=== PATIENT | male | born 1940 | race Caucasian/White ===

== ENCOUNTER 2020-02-18 21:34 | Inpatient (IN) | payer MEDICARE, OTHER, SELFPAY ==
--- NOTE | ~2020-02-18 | CT_ITS ---
EXAMINATION: CT brain wo con EXAM DATE: 02/18/2020 22:31 INDICATION: Transient alteration of awareness. Altered mental status. TECHNIQUE: Spiral CT of the head was performed without contrast. Axial, coronal and sagittal images were reviewed. The dose-length product (DLP) for this examination was 832.33 mGy-cm. The exposure w as tailored according to patient size, and iterative reconstruction (ASIR) was used as additional dos e reduction technique. Comparison is made to prior examination from 06/06/2019. FINDINGS: There is no acute intraparenchymal hemorrhage. No evidence of intraparenchymal brain mass lesion. No evidence of acute infarction. Please note that initial head CT has limited sensitivity f or small or acute infarctions. There is mild periventricular and subcortical hypodensity, nonspecific but probably related to small vessel ischemic disease. There is moderate prominence of the sulci a nd ventricles related to cerebral atrophy. There is intracranial carotid arteriosclerosis. There a re no extra-axial collections. There is no mass effect or midline shift. The orbits are unremarkabl e. Soft tissue is unremarkable. The visualized sinuses and mastoid air cells are well aerated. IMPRESSION: 1. No acute intracranial findings. 2. Chronic age related findings. Reviewed, dictated and finalized at location A.
--- NOTE | ~2020-02-18 | XR_ITS ---
MODIFIED ESOPHAGRAM HISTORY: Dysphagia. TECHNIQUE: Modified barium esophagram was performed on 02/21/2020. I administered fluoroscopy and perfo rmed the exam with speech pathologist. Patient was seated for lateral fluoroscopic imaging for inges tion of thin liquids, pudding, solids and quantified amounts, followed by thin liquids in uncontrolle d amounts. This was recorded on tape. A single fluoroscopic spot image was also recorded. The DAP for this procedure was 0.88 Gycm2. The amount of fluoroscopy time used during this procedure was 1.3 min utes. FINDINGS: Oral stage: Premature spillage into the pharynx.. Pharyngeal stage: There is laryngeal penetration with artifactual attempted clearance suggesting like lihood of aspiration. There is residue in the vallecula and piriform sinuses. Cervical/esophageal stage: Adequate function. IMPRESSION: Oral pharyngeal dysphagia with laryngeal penetration and infection will attempt at cleara nce suggesting likelihood of aspiration. Reviewed, dictated and finalized at location A. IMPRESSION: Oral pharyngeal dysphagia with laryngeal penetration and infection will attempt at clearance suggesting likelihood of aspiration.
--- NOTE | ~2020-02-18 | XR_ITS ---
EXAMINATION: XR chest 1V portable EXAM DATE: 02/18/2020 22:40 INDICATION: Acute alteration of awareness. TECHNIQUE: Portable AP frontal chest x-ray was obtained. Comparison is made to prior examination from 06/08/2019. FINDINGS: There is small to moderate amount of ill-defined right midlung zone airspace disease which could be acute infectious process. Left lung is clear. No pneumothorax or pleural effusion. Cardiomed iastinal silhouette is normal. There are bony degenerative changes. Bones appear osteopenic. IMPRESSION: Small to moderate sized right midlung zone opacity, could be acute infectious process. Pl ease clinically correlate. Reviewed, dictated and finalized at location A. IMPRESSION: Small to moderate sized right midlung zone opacity, could be acute infectious process. Please clinically correlate.
[2020-02-18 21:42] VITALS: BP 115/45; PULSE 76; RESP 20; TEMP 37.7; O2SAT 96
--- NOTE | 2020-02-18 21:45 | ECG_ITS ---
Measurements Intervals [place] Rate: 74 P: 30 AR: 185 QRS: -62 QRSD: 115 T: 48 QT: 390 QTc: 434 Interpretive Statements SINUS RHYTHM LEFT ANTERIOR FASCICULAR BLOCK ABNORMAL ECG Electronically Signed On 02-19-2020 6:55:23 CDT by Lexa Olivera D.O.
--- NOTE | 2020-02-18 21:47 | ED.GENADULT ---
HPI - General Adult General Chief complaint: Weakness Stated complaint: lethargy Time Seen by Provider: 02/18/20 21:39 Source: patient History of Present Illness HPI narrative: Patient is a 79 y/o male sent from [place] for decreased appetite for last 2-3 days. He reportedly has not been eating much and has decreased mental status. There is no known alleviating or aggravating factor. He has Dementia at baseline and normally does not talk much. He is unable to provide additional history. He has not been observed to have vomiting or cough. Related Data Home Medications Medication Instructions Recorded Confirmed Complete Multivitamin 1 tab-cap PO DAILY 06/07/19 02/19/20 Ferrex 150 Forte Plus 1 cap PO DAILY 06/07/19 02/19/20 Neupro 1 patch TOPICAL DAILY 06/07/19 02/19/20 ascorbic acid (vitamin C) [Vitamin 500 mg PO DAILY 06/07/19 02/19/20 C] carbidopa-levodopa 2 tablet PO QID 06/07/19 02/19/20 carvedilol 3.125 mg PO BID 06/07/19 02/19/20 docusate sodium [DOK] 100 mg PO BID 06/07/19 02/19/20 donepezil 10 mg PO DAILY 06/07/19 02/19/20 finasteride 5 mg PO DAILY 06/07/19 02/19/20 memantine 10 mg PO BID 06/07/19 02/19/20 olopatadine 1 drp OPHTHALMIC (EYE) BID 06/07/19 02/19/20 pantoprazole 40 mg PO DAILY 06/07/19 02/19/20 polyethylene glycol 3350 17 g PO BID 06/07/19 02/19/20 potassium chloride 20 meq PO DAILY 06/07/19 02/19/20 Allergies Allergy/AdvReac Type Severity Reaction Status Date / Time Sulfa (Sulfonamide Allergy Unknown Unknown Verified 02/18/20 21:50 Antibiotics) Review of Systems Review of Systems: ROS unobtainable: Yes unobtainable due to mental status Constitutional: Constitutional: Reports as per HPI Gastrointestinal: Gastrointestinal: Reports as per HPI [facility] Past Medical History Medical History Acute respiratory failure requiring intubation May 2019 BPH (benign prostatic hyperplasia) Dementia GERD (gastroesophageal reflux disease) HTN (hypertension) Hyperlipidemia Iron deficiency anemia Parkinson's disease Sleep apnea Upper GI bleed Surgical History Surgical History History of esophagogastroduodenoscopy (EGD) November 2018 demonstrating reflux esophagitis, hiatal hernia and intraluminal gastric blood History of hernia repair History of right knee joint replacement History of total hip replacement History of vasectomy Hx of tonsillectomy Family History Family History Father Malignant neoplasm of prostate Mother Chronic renal failure Social History Social History Social History: code status: Full code per [facility] form on chart Smoking status: Never smoker Second hand tobacco smoke exposure: No Alcohol intake: never Substance use: never Additional living arrangements comments: The patient lives at [facility] and is dependent for all activities of daily living. He is and has 2 children. He is estranged from his daughter. 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 Gender identity (if verbalized by the patient): Male Spiritual care concerns: No Exam Const: General: no acute distress and ill appearing Orientation/consciousness: lethargic HENMT: Head: normocephalic Ears: external ears normal General nose exam: Normal external nose present Eyes: General: appearance normal, both eyes and all related structures Conjunctivae: conjunctivae normal Neck: Neck: normal visual inspection and full ROM Chest: Chest palpation & inspection: normal inspection of the chest and no tenderness Resp: Effort & Inspection: normal respiratory effort Auscultation: clear to auscultation bilaterally Cardio: Rate: regular rate Rhythm: regular rhythm GI: GI Palp: No abdominal tenderness and Yes Soft to palpation S
[2020-02-18 22:18] LABS: Basophils Percent Auto 0.4 % (0.2-1.2); Eosinophils Absolute Auto 0.2 K/mm3 (0-0.3); Eosinophils Percent Auto 2.1 % (0-4.4); Hematocrit 34.6 % (42.0-52.0); Hemoglobin 10.2 g/dL (14.0-18.0); Immature Granulocyte Absolute 0.07 K/mm3 (0.00-0.031); Immature Granulocyte Percent A 0.7 % (0-0.5); Lymphocytes Absolute Auto 1.06 K/mm3 (0.9-3.2); Lymphocytes Percent Auto 9.9 % (18.3-44.2); Mean Corpuscular HGB Conc 29.5 g/dl (32-36); Mean Corpuscular Hemoglobin 24.7 pg (26-34); Mean Corpuscular Volume 83.8 fl (80-100); Mean Platelet Volume 9.8 fl (7.4-10.4); Monocytes Absolute Auto 0.7 K/mm3 (0.1-0.6); Monocytes Percent Auto 6.1 % (2.6-8.5); Neutrophils Absolute Auto 8.7 K/mm3 (1.3-6.7); Neutrophils Percent Auto 80.8 % (45.5-73.1); Platelet Count Result 280 k/mm3 (150-375); Red Blood Count 4.13 M/mm3 (4.6-6.20); Red Cell Distribution Width 16.9 % (11.5-14.5); White Blood Count 10.7 K/mm3 (4.5-10.0)
[2020-02-18 22:22] LABS: Add Urine Microscopic? YES; Appearance Urine Turbid (Clear); Bacteria Urine Trace /hpf; Bilirubin Urine Negative (Negative); Color Urine Yellow (Yellow); Glucose Urine UA Negative (Negative); Ketones Urine Trace mg/dL (Negative); Leukocyte Esterase Ur 3+ LEU/UL (Negative); Mucus Urine Heavy /lpf; Nitrate Urine Negative (Negative); Protein Urine 2+ mg/dL (Negative); RBC Urine 21-50 /hpf (0-2); WBC Clumps Urine Present /HPF; WBC Urine >75 /hpf
[2020-02-18 22:24] LABS: Blood Urine Negative (Negative)
[2020-02-18 22:27] LABS: Platelet Estimate Adequate (Adequate)
[2020-02-18 22:29] LABS: Hypochromasia 1+ (NORMAL)
[2020-02-18 22:30] LABS: Alanine Aminotransferase 6 U/L (4-50); Albumin Level 2.9 g/dL (3.5-5.1); Alkaline Phosphatase 80 U/L (38-126); Anion Gap 8.4 mmol/L (7-16); Aspartate Amino Transferase 18 U/L (17-59); Bilirubin,Total 0.5 mg/dL (0.2-1.3); Blood Urea Nitrogen 18 mg/dL (9-20); Calcium 8.8 mg/dL (8.4-10.2); Carbon Dioxide 27 mmol/L (22-30); Chloride 114 mmol/L (98-107); Estimated CRCL calculation 83 ml/min; Estimated Glomerular Filt Rate > 60; Glucose 114 mg/dL (75-110); Ovalocytes 1+ (NORMAL); Potassium 3.4 mmol/L (3.4-5.0); Sodium 146 mmol/L (137-145)
[2020-02-18 22:52] VITALS: BP 124/63; PULSE 73; RESP 17; O2SAT 96
[2020-02-18 23:30] VITALS: BP 109/55; PULSE 71; RESP 18; O2SAT 97
[2020-02-19] VITALS (8 sets, daily range): BP systolic 92–135; BP diastolic 45–60; PULSE 50–72; RESP 16–22; TEMP 36.3–37.1; O2SAT 93–100; BMI 19.3
[2020-02-19] MEDS: cefTRIAXone 1 GM VIAL IM (00:04)
--- NOTE | 2020-02-19 03:14 | ADMGEN ---
This patient, Jose D Whitney, was admitted to [facility] Surg Room 331-01. Patient/family oriented to hospital policies and general routines including ID bracelet, bed and alarms, visiting hours, pain management, procedures, bathroom and other care routines, personal items, smoking policy, room service/diet, and visiting hours. Valuables list has been completed. Information on how to activate the Rapid Response Team has been discussed. Patient/Family are encouraged to report perceived risks to care and to ask questions if they do not understand what they are told or what they should do.
[2020-02-19] MEDS: SODIUM CHLORIDE 0.9% IV 1,000 ML 125 ML IV CONT ×2 (04:45→21:08)
--- NOTE | 2020-02-19 04:51 | PM.IMHP ---
H&P: HPI History of Present Illness Date/Time: 02/19/20 04:51 Chief complaint: change in mental status Narrative: Jose D Whitney is a 79 year old male with a past medical history of Parkinson's disease, dementia, hypertension, and urinary retention who presented to the ER From [facility] via EMS due to decreased level of alertness and not following commands For 3 days. The patient is usually able to follow verbal cues and follow people around the room with his eyes. He usually is able say a couple of words. The patient's sister told nursing staff that the patient's last meal was on the . He usually requires assistance for all meals and is on a double portion high-protein diet. Upon approaching the bed the patient has a foul odor. Upon further vent investigation the patient was noted to have large, deep foul-smelling wounds to his coccyx, buttock and peritoneum. The largest of the wounds appear to have eschar at the base. The patient had snoring respirations at the time of my evaluation. He did quit snoring when I called his name. When I attempted to examine his eyes he did clench eyes tightly. Just prior to my evaluation the patient's blood pressures were reported at 93/52. However following my evaluation the patient's repeat blood pressures were in the 130s to 150 systolic. Review of Systems Review of Systems: ROS unobtainable: Yes unobtainable due to medical condition ( due to the patient's dementia) [facility] Past Medical History Medical History (Updated 02/19/20 @ 05:05 by Sophia Ruby DO) Acute respiratory failure requiring intubation May 2019 BPH (benign prostatic hyperplasia) Dementia GERD (gastroesophageal reflux disease) HTN (hypertension) Hyperlipidemia Iron deficiency anemia Parkinson's disease Sleep apnea Upper GI bleed Surgical History Surgical History (Updated 02/19/20 @ 06:16 by Sophia Ruby DO) History of esophagogastroduodenoscopy (EGD) November 2018 demonstrating reflux esophagitis, hiatal hernia and intraluminal gastric blood History of hernia repair History of right knee joint replacement History of total hip replacement History of vasectomy Hx of tonsillectomy Family History Family History Father Malignant neoplasm of prostate Mother Chronic renal failure Social History Social History (Updated 02/19/20 @ 05:09 by GABY James Social History: code status: Full code per [facility] form on chart Smoking status: Never smoker Second hand tobacco smoke exposure: No Alcohol intake: never Substance use: never Additional living arrangements comments: The patient lives at [facility] and is dependent for all activities of daily living. He is and has 2 children. He is estranged from his daughter. 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 Gender identity (if verbalized by the patient): Male Spiritual care concerns: No Meds Home Medications and Allergies Home Medications Medication Instructions Recorded Confirmed Type Arginaid 4.5 g PO BID 06/07/19 06/07/19 History Complete Multivitamin 1 tab-cap PO DAILY 06/07/19 02/19/20 History Ferrex 150 Forte Plus 1 cap PO DAILY 06/07/19 02/19/20 History Neupro 1 patch TOPICAL DAILY 06/07/19 02/19/20 History ascorbic acid (vitamin C) [Vitamin 500 mg PO DAILY 06/07/19 02/19/20 History C] carbidopa-levodopa 2 tablet PO QID 06/07/19 02/19/20 History carvedilol 3.125 mg PO BID 06/07/19 02/19/20 History docusate sodium [DOK] 100 mg PO BID 06/07/19 02/19/20 History donepezil 10 mg PO DAILY 06/07/19 02/19/20 History finasteride 5 mg PO DAILY 06/07/19 02/19/20 History memantine 10 mg PO BID 06/07/19 02/19/20 History olopatadine 1 drp OPHTHALMIC (EYE) BID 06/07/19 02/19/20 History pantoprazole 40 mg PO DAILY 06/07/19 02/19/20 History polyethylene glycol 3350 17 g PO BID 06/07/19
[2020-02-19] MEDS: SODIUM CHLORIDE 0.9% IV 1,000 ML 999 ML IV CONT (05:35)
[2020-02-19 06:19] LABS: Hematocrit 38.2 % (42.0-52.0); Hemoglobin 10.8 g/dL (14.0-18.0); Mean Corpuscular HGB Conc 28.3 g/dl (32-36); Mean Corpuscular Hemoglobin 24.7 pg (26-34); Mean Corpuscular Volume 87.2 fl (80-100); Mean Platelet Volume 10.3 fl (7.4-10.4); Platelet Count Result 217 k/mm3 (150-375); Red Blood Count 4.38 M/mm3 (4.6-6.20); Red Cell Distribution Width 17.1 % (11.5-14.5); White Blood Count 9.4 K/mm3 (4.5-10.0)
[2020-02-19 06:24] LABS: Glucose Point of Care 91 (65-105)
[2020-02-19 06:44] LABS: Anion Gap 7.5 mmol/L (7-16); Blood Urea Nitrogen 17 mg/dL (9-20); Calcium 8.5 mg/dL (8.4-10.2); Carbon Dioxide 26 mmol/L (22-30); Chloride 116 mmol/L (98-107); Estimated CRCL calculation 97 ml/min; Estimated Glomerular Filt Rate > 60; Glucose 109 mg/dL (75-110); Potassium 3.5 mmol/L (3.4-5.0); Sodium 146 mmol/L (137-145)
[2020-02-19] MEDS: metroNIDAZOLE 500 MG/ISO 100ML 500 MG/100 ML BAG 100 MG IVPB ×3 (07:50→18:04)
--- NOTE | 2020-02-19 10:31 | PM.CNGS ---
Assessment and Plan Assessment and plan (1) Decubitus ulcer: Code(s): L89.90 - Pressure ulcer of unspecified site, unspecified stage Status: Chronic Assessment and Plan: severe decubiti I bilateral ischium and sacrum. Do not require urgent debridement or drainage. Will start Dakin's solution and wound nurses will be seeing him as well. (2) Altered mental status: Qualifiers: Altered mental status type: unspecified Qualified Code(s): R41.82 - Altered mental status, unspecified Code(s): R41.82 - Altered mental status, unspecified Status: Acute Assessment and Plan: Doubt this is from the decubiti. Overall prognosis is poor. (3) Parkinson's disease: Code(s): G20 - Parkinson's disease Status: Chronic Assessment and Plan: Very advanced and patient stiff with dementia. Very poor surgical candidate it. If general anesthesia must be administered, patient has significant risk of dying from respiratory complications due to the advanced Parkinson's disease. (4) Pneumonia: Qualifiers: Laterality: right Lung location: unspecified part of lung Pneumonia type: due to unspecified organism Qualified Code(s): J18.9 - Pneumonia, unspecified organism Code(s): J18.9 - Pneumonia, unspecified organism Status: Acute Assessment and Plan: Right middle lobe infiltrate noted on chest x-ray. (5) UTI (urinary tract infection) due to urinary indwelling Cheung catheter: Qualifiers: Encounter type: initial encounter Indwelling urinary catheter type: indwelling urethral catheter Qualified Code(s): T83.511A - Infection and inflammatory reaction due to indwelling urethral catheter, initial encounter; N39.0 - Urinary tract infection, site not specified Code(s): T83.511A - Infection and inflammatory reaction due to indwelling urethral catheter, initial encounter; N39.0 - Urinary tract infection, site not specified Status: Acute Assessment and Plan: Has chronic indwelling Cheung, pyuria bacteriuria with clumps of white cells. Being treated. Continue Cheung catheter. 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 He also has dementia. He lives in [place]. He has been noted to have decreased mental status and has not been eating for the last few days. He was brought to the emergency room where he was noted to have an infiltrate in the right mid lung zone and abnormal urinalysis suggestive of UTI. He has been admitted and was also noted to have bilateral ischial and a sacral decubitus with foul odor. We were asked to see the patient regarding management of these decubiti. He is not chronically anticoagulated. His white blood cell count is borderline elevated. He has had a low-grade temperature of 37.7? centigrade. He is currently nonverbal and history is taken entirely from the old records. He is a person under investigation for COVID. Review of Systems Review of Systems: ROS unobtainable: Yes unobtainable due to mental status PMFSH Past Medical History Medical History Acute respiratory failure requiring intubation May 2019 BPH (benign prostatic hyperplasia) Dementia GERD (gastroesophageal reflux disease) HTN (hypertension) Hyperlipidemia Iron deficiency anemia Parkinson's disease Sleep apnea Upper GI bleed Surgical History Surgical History History of esophagogastroduodenoscopy (EGD) November 2018 demonstrating reflux esophagitis, hiatal hernia and intraluminal gastric blood History of hernia repair History of right knee joint replacement Histo
[2020-02-19] MEDS: SOD HYPOCHLORITE 1/4 STRENGTH 473 ML 1 APPLIC TOPICAL ×2 (12:35→21:08)
[2020-02-19 13:07] LABS: Glucose Point of Care 99 (65-105)
[2020-02-19 14:10] LABS: SARS-CoV-2 RNA PCR Negative
--- NOTE | 2020-02-19 16:32 | PCDIET ---
Nutrition Assessment Complete: Increased protein needs r/t wounds on buttocks and coccyx as evidence by daily needs of 80-93g to promote healing Diet advancement with PO intake of 75% or greater to provided enough kcals and protein for wound healing Goal:New goal Pt current nutrition is NPO. Nutrition recommendation: Regular Diet + Kiran and Ensure Enlive BID with diet advancement Additional Notes: Pt is currently NPO. Due to pressure ulcers and lower BMI, pt would benefit from Kiran and Enlive supplements daily. We will follow diet, Po intake, skin, labs, wt every three days.
--- NOTE | 2020-02-19 17:19 | PM.IMPN ---
Progress Note: A&P Assessment and Plan (1) Decubitus ulcer: Code(s): L89.90 - Pressure ulcer of unspecified site, unspecified stage Status: Chronic Assessment and Plan: He has 3 large decubitus ulcers on the right ischium, left ischium, and sacrum. Wound care has been consulted recommendations are appreciated. continue dressing and Dakin's solution as recommended by wound care. Continue broad-spectrum antibiotic coverage. (2) UTI (urinary tract infection) due to urinary indwelling Cheung catheter: Qualifiers: Encounter type: initial encounter Indwelling urinary catheter type: indwelling urethral catheter Qualified Code(s): T83.511A - Infection and inflammatory reaction due to indwelling urethral catheter, initial encounter; N39.0 - Urinary tract infection, site not specified Code(s): T83.511A - Infection and inflammatory reaction due to indwelling urethral catheter, initial encounter; N39.0 - Urinary tract infection, site not specified Status: Acute Assessment and Plan: Cheung catheter Associated UTI. The patient received 1 dose of Rocephin and azithromycin in the ER. urine cultures and blood cultures pending he is on broad-spectrum antibiotics as noted above. (3) Altered mental status: Qualifiers: Altered mental status type: unspecified Qualified Code(s): R41.82 - Altered mental status, unspecified Code(s): R41.82 - Altered mental status, unspecified Status: Acute Assessment and Plan: Patient was noted not to have eaten or been very responsive at all over the past 3 days. this may be metabolic given underlying infections. However, it appears that he is overall in very poor health and prognosis is poor. I will plan to discuss with family his baseline as well as general goals for care. I believe this patient is a good candidate for hospice care. Continue treatment for underlying infections. (4) Pneumonia: Qualifiers: Laterality: right Lung location: unspecified part of lung Pneumonia type: due to unspecified organism Qualified Code(s): J18.9 - Pneumonia, unspecified organism Code(s): J18.9 - Pneumonia, unspecified organism Status: Acute Assessment and Plan: Chest x-ray shows small to moderate-size right midlung zone opacity which may represent an acute infectious process. The patient does not appear to have any respiratory symptoms. Infectious etiology is better explained by decubitus ulcers and urinary tract infection. COVID test was negative. Will not pursue any further workup for pneumonia. No additional treatment is needed. Subjective Date/time seen: 02/19/20 17:19 Interval history: Date of service: 02/19/2020 Mr. Whitney is asleep and remains asleep throughout my encounter. He was snoring loudly. When I called his name, he appeared to wake up for just a moment and fell right back to sleep, but his snoring diminished. He cannot answer any questions or follow any commands. He has not eaten yet today. Review of Systems Review of Systems: ROS unobtainable: Yes unobtainable due to medical condition Exam Narrative: Exam Narrative: Mr. Whitney Is a frail, chronically ill-appearing 79-year-old male. he is lying supine in bed in a contracted position. HR 66, BP 135/48, RR 20, T 98.8?, 99% on room air. Neuro: lethargic, does not respond to questions or follow commands HEENMT: normocephalic, atraumatic, EOMI, sclerae anicteric, moist oral mucosa, tongue midline, nares patent Neck: supple, no lymphadenopathy Respiratory: clear to auscultation anteriorly, nonlabored breathing Cardio: regular rate, regular rhythm with S1-S2 Abdomen: nondistended, normoactive bowel sounds, soft, no rigidity or guarding with palpation Extremities: upper extremities contracted, no edema, erythema, cyanosis or clubbing, DP pulses 2+ bilaterally Skin: sacral decubitus ulcers pack
[2020-02-19 18:27] LABS: Glucose Point of Care 82 (65-105)
[2020-02-20] MEDS: metroNIDAZOLE 500 MG/ISO 100ML 500 MG/100 ML BAG 100 MG IVPB ×2 (00:57→05:24)
[2020-02-20 05:13] LABS: Glucose Point of Care 73 (65-105)
[2020-02-20] MEDS: SODIUM CHLORIDE 0.9% IV 1,000 ML 125 ML IV CONT ×2 (05:16→09:29)
[2020-02-20] MEDS: DEXTROSE 50% 25 GM/50 ML SYRINGE IV PUSH (05:24)
[2020-02-20 06:00] VITALS: BP 103/42; PULSE 54; RESP 16; TEMP 36.1; O2SAT 100
[2020-02-20 06:29] LABS: Glucose Point of Care 106 (65-105)
[2020-02-20 06:29] LABS: Glucose Point of Care 59 (65-105)
[2020-02-20 06:40] LABS: Basophils Percent Auto 0.6 % (0.2-1.2); Eosinophils Absolute Auto 0.4 K/mm3 (0-0.3); Eosinophils Percent Auto 5.9 % (0-4.4); Hematocrit 37.3 % (42.0-52.0); Hemoglobin 10.3 g/dL (14.0-18.0); Immature Granulocyte Absolute 0.05 K/mm3 (0.00-0.031); Immature Granulocyte Percent A 0.7 % (0-0.5); Lymphocytes Absolute Auto 0.97 K/mm3 (0.9-3.2); Lymphocytes Percent Auto 13.4 % (18.3-44.2); Mean Corpuscular HGB Conc 27.6 g/dl (32-36); Mean Corpuscular Hemoglobin 24.3 pg (26-34); Mean Platelet Volume 10.5 fl (7.4-10.4); Monocytes Absolute Auto 0.6 K/mm3 (0.1-0.6); Monocytes Percent Auto 8.3 % (2.6-8.5); Neutrophils Absolute Auto 5.1 K/mm3 (1.3-6.7); Neutrophils Percent Auto 71.1 % (45.5-73.1); Platelet Count Result 201 k/mm3 (150-375); Red Blood Count 4.24 M/mm3 (4.6-6.20); Red Cell Distribution Width 16.9 % (11.5-14.5); White Blood Count 7.2 K/mm3 (4.5-10.0)
[2020-02-20 06:53] LABS: Anion Gap 8 mmol/L (8-16); Blood Urea Nitrogen 12 mg/dL (9-20); Calcium 8.7 mg/dL (8.4-10.2); Carbon Dioxide 21 mmol/L (22-30); Chloride 116 mmol/L (98-107); Estimated CRCL calculation 118 ml/min; Estimated Glomerular Filt Rate > 60; Glucose 90 mg/dL (75-110); Potassium 3.4 mmol/L (3.4-5.0); Sodium 145 mmol/L (137-145)
[2020-02-20] MEDS: SOD HYPOCHLORITE 1/4 STRENGTH 473 ML 1 APPLIC TOPICAL ×2 (09:32→22:40)
--- NOTE | 2020-02-20 10:51 | PM.IMPN ---
Progress Note: A&P Assessment and Plan (1) Failure to thrive: Status: Acute Assessment and Plan: Patient is frail with poor oral intake and is physically inactive/bedbound. Based on his current state, I have concerns for how he can maintain an adequate nutritional status. I have discussed in detail with the patients sister his code status and goals of care. She has agreed to have a hospice consultation. Consult placed via CC. Continue dietary supplements (2) Decubitus ulcer: Code(s): L89.90 - Pressure ulcer of unspecified site, unspecified stage Status: Chronic Assessment and Plan: He has 3 large decubitus ulcers. 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 Wound care has been consulted and recommendations are appreciated. Continue dressing and Dakin's solution as recommended by wound care. He was seen by general surgery but is not a candidate for surgical debridement Continue broad spectrum antibiotic coverage. Blood cultures are pending. (3) UTI (urinary tract infection) due to urinary indwelling Cheung catheter: Qualifiers: Encounter type: initial encounter Indwelling urinary catheter type: indwelling urethral catheter Qualified Code(s): T83.511A - Infection and inflammatory reaction due to indwelling urethral catheter, initial encounter; N39.0 - Urinary tract infection, site not specified Code(s): T83.511A - Infection and inflammatory reaction due to indwelling urethral catheter, initial encounter; N39.0 - Urinary tract infection, site not specified Status: Acute Assessment and Plan: Cheung catheter associated UTI. The patient received 1 dose of Rocephin and azithromycin in the ER. Urine culture shows pseudomonas infection. Continue Levaquin based on susceptibility report IV fluids (4) Altered mental status: Qualifiers: Altered mental status type: unspecified Qualified Code(s): R41.82 - Altered mental status, unspecified Code(s): R41.82 - Altered mental status, unspecified Status: Acute Assessment and Plan: Patient was noted to have been less responsive over the past 4 days. It is possible this may be due to his acute infection, however given his overall clinical picture it seems that this is a more chronic issue. He is nonverbal and does not follow commands. Continue treatment for underlying infections. Discussion with family as above. (5) Pneumonia: Qualifiers: Laterality: right Lung location: unspecified part of lung Pneumonia type: due to unspecified organism Qualified Code(s): J18.9 - Pneumonia, unspecified organism Code(s): J18.9 - Pneumonia, unspecified organism Status: Acute Assessment and Plan: Chest x-ray shows small to moderate-size right midlung zone opacity which may represent an acute infectious process. The patient does not appear to have any respiratory symptoms. Infectious etiology is better explained by decubitus ulcers and urinary tract infection. COVID test was negative. Will not pursue any further workup for pneumonia. No additional treatment is needed. (6) Dysphagia: Qualifiers: Dysphagia type: unspecified Qualified Code(s): R13.10 - Dysphagia, unspecified Code(s): R13.10 - Dysphagia, unspecified Status: Acute Assessment and Plan: He is on a regular diet at [place]. He did not eat or drink yesterday but today was noted to cough after each sip of liquids. Concern for aspiration. Order bedside swallow study. Will adjust diet orders based on recommendations. Subjective Date/time seen: 02/20/20 10:51 Interval history: Date of service: 02/20/2020 He is unable to respond to any questions or follow any commands. He did not eat any of his breakfast. Nursing staff noted that he seemed to chew one bite for awhile but never swallowed. He has
[2020-02-20 14:00] VITALS: BP 101/41; PULSE 61; RESP 18; TEMP 36.7; TEMP 36.8; O2SAT 100
--- NOTE | 2020-02-20 16:44 | PCSTNOTE ---
Bedside swallow evaluation complete. Please see ST evaluation for details and recommendations.
--- NOTE | 2020-02-20 17:28 | PC.NURSE ---
Pt had swallow study performed 02/19 lunchtime. Pt took in some foods adequately, but began to slow down his swallow reflex. ST said they would be in touch with PA. PA placed orders under initial advisement of likely nectar thick liquids. ST placed recommendation to keep pt NPO until MBS completed. Called Dr. Mtz to clarify which order he would like pt to have. stated to make pt NPO until MBS performed and to talk with Lexie tomorrow morning to discuss temporary solution if MBS cannot be performed tomorrow. Notified family who had numerous questions. Answered with information I knew and said we could discuss hospice with Keila WHITMAN when she calls and other options with Lexie in AM. Will continue NPO status with Q6 accuchecks.
[2020-02-20 17:47] LABS: Glucose Point of Care 153 (65-105)
[2020-02-20 20:24] LABS: Vancomycin Trough 10.9 ug/mL (10.0-20.0)
[2020-02-20 22:00] VITALS: BP 103/46; PULSE 72; RESP 16; TEMP 36.9; O2SAT 100
[2020-02-21 00:51] LABS: Glucose Point of Care 91 (65-105)
[2020-02-21 06:00] VITALS: BP 111/53; PULSE 59; RESP 16; TEMP 36.4; O2SAT 99
[2020-02-21 06:34] LABS: Basophils Percent Auto 0.5 % (0.2-1.2); Eosinophils Absolute Auto 0.4 K/mm3 (0-0.3); Eosinophils Percent Auto 7.7 % (0-4.4); Hematocrit 29.8 % (42.0-52.0); Hemoglobin 8.7 g/dL (14.0-18.0); Immature Granulocyte Absolute 0.05 K/mm3 (0.00-0.031); Immature Granulocyte Percent A 0.9 % (0-0.5); Lymphocytes Absolute Auto 0.89 K/mm3 (0.9-3.2); Mean Corpuscular HGB Conc 29.2 g/dl (32-36); Mean Corpuscular Hemoglobin 24.6 pg (26-34); Mean Corpuscular Volume 84.2 fl (80-100); Mean Platelet Volume 10.2 fl (7.4-10.4); Monocytes Absolute Auto 0.4 K/mm3 (0.1-0.6); Monocytes Percent Auto 6.5 % (2.6-8.5); Neutrophils Absolute Auto 3.8 K/mm3 (1.3-6.7); Neutrophils Percent Auto 68.4 % (45.5-73.1); Platelet Count Result 226 k/mm3 (150-375); Red Blood Count 3.54 M/mm3 (4.6-6.20); Red Cell Distribution Width 16.7 % (11.5-14.5); White Blood Count 5.6 K/mm3 (4.5-10.0)
[2020-02-21 06:54] LABS: Anion Gap 3 mmol/L (8-16); Blood Urea Nitrogen 11 mg/dL (9-20); Calcium 8.1 mg/dL (8.4-10.2); Carbon Dioxide 24 mmol/L (22-30); Chloride 114 mmol/L (98-107); Estimated CRCL calculation 118 ml/min; Estimated Glomerular Filt Rate > 60; Glucose 92 mg/dL (75-110); Potassium 2.9 mmol/L (3.4-5.0); Sodium 141 mmol/L (137-145)
[2020-02-21] MEDS: SODIUM CHLORIDE 0.9% IV 1,000 ML 125 ML IV CONT (08:48)
[2020-02-21] MEDS: SOD HYPOCHLORITE 1/4 STRENGTH 473 ML 1 APPLIC TOPICAL ×2 (09:39→22:09)
[2020-02-21 12:14] LABS: Glucose Point of Care 73 (65-105)
--- NOTE | 2020-02-21 13:40 | PHAR ---
HOME MEDICATION VERIFIED BY PHARMACY: NEUPRO (ROTIGOTINE) 4MG/24 HOURS PATCH APPLY 1 PATCH ONCE DAILY AT 6AM RX#[id number]
[2020-02-21 14:00] VITALS: BP 105/46; PULSE 64; RESP 18; TEMP 36.7; O2SAT 100
--- NOTE | 2020-02-21 15:16 | PM.IMPN ---
Progress Note: A&P Assessment and Plan (1) Failure to thrive: Status: Acute Assessment and Plan: Patient is frail with poor oral intake and is physically inactive/bedbound. Based on his current state, I have concerns for how he can maintain an adequate nutritional status. I have discussed in detail with the patients sister his code status and goals of care. She has agreed to have a hospice consultation. Consult placed via CC. Family will be meeting with [facility] today. (2) Decubitus ulcer: Code(s): L89.90 - Pressure ulcer of unspecified site, unspecified stage Status: Chronic Assessment and Plan: He has 3 large decubitus ulcers. 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 Wound care has been consulted and recommendations are appreciated. Continue dressing and Dakin's solution as recommended by wound care. He was seen by general surgery but is not a candidate for surgical debridement Continue broad spectrum antibiotic coverage. Blood cultures are pending. (3) UTI (urinary tract infection) due to urinary indwelling Cheung catheter: Qualifiers: Encounter type: initial encounter Indwelling urinary catheter type: indwelling urethral catheter Qualified Code(s): T83.511A - Infection and inflammatory reaction due to indwelling urethral catheter, initial encounter; N39.0 - Urinary tract infection, site not specified Code(s): T83.511A - Infection and inflammatory reaction due to indwelling urethral catheter, initial encounter; N39.0 - Urinary tract infection, site not specified Status: Acute Assessment and Plan: Cheung catheter associated UTI. The patient received 1 dose of Rocephin and azithromycin in the ER. Urine culture shows pseudomonas infection. Continue Levaquin based on susceptibility report IV fluids (4) Altered mental status: Qualifiers: Altered mental status type: unspecified Qualified Code(s): R41.82 - Altered mental status, unspecified Code(s): R41.82 - Altered mental status, unspecified Status: Acute Assessment and Plan: Patient was noted to have been less responsive over the past 4 days prior to admission. It is possible this may be due to his acute infection, however given his overall clinical picture it seems that this is a more chronic issue. He is nonverbal and does not follow commands. Continue treatment for underlying infections. Discussion with family as above. (5) Pneumonia: Qualifiers: Laterality: right Lung location: unspecified part of lung Pneumonia type: due to unspecified organism Qualified Code(s): J18.9 - Pneumonia, unspecified organism Code(s): J18.9 - Pneumonia, unspecified organism Status: Acute Assessment and Plan: Chest x-ray shows small to moderate-size right midlung zone opacity which may represent an acute infectious process. The patient does not appear to have any respiratory symptoms. Infectious etiology is better explained by decubitus ulcers and urinary tract infection. COVID test was negative. Will not pursue any further workup for pneumonia. No additional treatment is needed. (6) Dysphagia: Qualifiers: Dysphagia type: unspecified Qualified Code(s): R13.10 - Dysphagia, unspecified Code(s): R13.10 - Dysphagia, unspecified Status: Acute Assessment and Plan: He is on a regular diet at [facility]. he was met noted by nursing staff to cough after each sip of liquids. Bedside swallow study was performed on 02/19 with recommendations for NPO diet until modified barium swallow study could be performed. He had a modified swallow study today and recommendations continue to remain NPO given risk of aspiration. I discussed these recommendations with his sister Heide (POA). At this time we will keep him NPO. She is meeting with hospice today. I
[2020-02-21 17:01] LABS: Glucose Point of Care 90 (65-105)
[2020-02-21 22:11] VITALS: BP 106/55; PULSE 57; RESP 18; TEMP 36.3; O2SAT 100
[2020-02-22 00:11] LABS: Glucose Point of Care 84 (65-105)
[2020-02-22] MEDS: SODIUM CHLORIDE 0.9% IV 1,000 ML 125 ML IV CONT ×2 (04:48→18:50)
[2020-02-22 05:43] VITALS: BP 115/68; PULSE 62; RESP 18; TEMP 36.3; O2SAT 100
[2020-02-22 06:17] LABS: Basophils Percent Auto 0.6 % (0.2-1.2); Eosinophils Absolute Auto 0.4 K/mm3 (0-0.3); Eosinophils Percent Auto 8.2 % (0-4.4); Hematocrit 34.1 % (42.0-52.0); Hemoglobin 9.9 g/dL (14.0-18.0); Immature Granulocyte Absolute 0.04 K/mm3 (0.00-0.031); Immature Granulocyte Percent A 0.8 % (0-0.5); Lymphocytes Absolute Auto 0.91 K/mm3 (0.9-3.2); Lymphocytes Percent Auto 18.6 % (18.3-44.2); Mean Corpuscular Hemoglobin 24.3 pg (26-34); Mean Corpuscular Volume 83.8 fl (80-100); Mean Platelet Volume 9.9 fl (7.4-10.4); Monocytes Absolute Auto 0.4 K/mm3 (0.1-0.6); Neutrophils Absolute Auto 3.1 K/mm3 (1.3-6.7); Neutrophils Percent Auto 63.8 % (45.5-73.1); Platelet Count Result 216 k/mm3 (150-375); Red Blood Count 4.07 M/mm3 (4.6-6.20); Red Cell Distribution Width 16.7 % (11.5-14.5); White Blood Count 4.9 K/mm3 (4.5-10.0)
[2020-02-22 06:30] LABS: Anion Gap 5 mmol/L (8-16); Blood Urea Nitrogen 6 mg/dL (9-20); Calcium 7.9 mg/dL (8.4-10.2); Carbon Dioxide 24 mmol/L (22-30); Chloride 109 mmol/L (98-107); Estimated CRCL calculation 118 ml/min; Estimated Glomerular Filt Rate > 60; Glucose 82 mg/dL (75-110); Potassium 3.3 mmol/L (3.4-5.0); Sodium 138 mmol/L (137-145)
[2020-02-22 06:39] LABS: Glucose Point of Care 76 (65-105)
[2020-02-22 06:55] LABS: Platelet Estimate Adequate (Adequate); Poikilocytosis 1+ (NORMAL)
[2020-02-22 06:56] LABS: Ovalocytes 1+ (NORMAL)
[2020-02-22] MEDS: SOD HYPOCHLORITE 1/4 STRENGTH 473 ML 1 APPLIC TOPICAL ×2 (09:15→21:44)
[2020-02-22 12:19] LABS: Glucose Point of Care 104 (65-105)
[2020-02-22 14:00] VITALS: BP 115/64; PULSE 83; RESP 18; TEMP 36.3; O2SAT 94
--- NOTE | 2020-02-22 14:17 | PCNFU ---
Nutrition Follow-Up Complete: Increased protein needs r/t wounds on buttocks and coccyx as evidence by daily needs of 80-93g to promote healing Diet advancement with PO intake of 75% or greater to provided enough kcals and protein for wound healing Limited progress towards goal. Pt current nutrition is NPO. Nutrition recommendation: Agree Last recorded weight is 66.7 kg. Bowel Motility:+BM 02/19 Labs Reviewed: K 3.3,BUN 6,Cr 0.4,Hct 34.1 Meds Noted:Normal Saline @ 125 ml/hr Additional Notes: Dietitian Consult for Dyshagia, NPO diet. MBS on 02/20-recommending NPO diet. Spoke with [facility] today, plans for Hospice. No further nutritional interventions needed at this time. Thank you for the consult.
--- NOTE | 2020-02-22 16:05 | PM.DS ---
DS: Admitting Diagnosis Admitting Diagnosis Admitting Diagnosis: Infection and inflammatory reaction due to indwelling urethral catheter, initial encounter DS: Discharge Diagnosis Discharge Diagnosis (1) Failure to thrive: Status: Acute Assessment and Plan: Patient is frail with poor oral intake and is bedbound. Based on his current state, I have concerns for how he can maintain an adequate nutritional status. Goals of care were discussed extensively with his sister. She met with [facility] on 02/21/20 and opted to proceed with Hospice care. He will be evaluated by Hospice upon his return to [place]. (2) Decubitus ulcer: Code(s): L89.90 - Pressure ulcer of unspecified site, unspecified stage Status: Chronic Assessment and Plan: He has 3 large decubitus ulcers. 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 He was evaluated by wound care and was recoomended to continue Dakin's solution and dressing. He was seen by general surgery but was not a candidate for surgical debridement given his overall condition. He was treated with broad spectrum antibiotics. Preliminary blood cultures revealed NGTD and final cultures will be monitored. Further care per hospice. (3) UTI (urinary tract infection) due to urinary indwelling Cheung catheter: Qualifiers: Encounter type: initial encounter Indwelling urinary catheter type: indwelling urethral catheter Qualified Code(s): T83.511A - Infection and inflammatory reaction due to indwelling urethral catheter, initial encounter; N39.0 - Urinary tract infection, site not specified Code(s): T83.511A - Infection and inflammatory reaction due to indwelling urethral catheter, initial encounter; N39.0 - Urinary tract infection, site not specified Status: Acute Assessment and Plan: Cheung catheter associated UTI. Urine culture showed pseudomonas infection. He was treated with Levaquin based on culture susceptibility. He was given IV fluids. Further management per Hospice. He remained afebrile, without leukocytosis, and had no additional signs or symptoms of infection. (4) Altered mental status: Qualifiers: Altered mental status type: unspecified Qualified Code(s): R41.82 - Altered mental status, unspecified Code(s): R41.82 - Altered mental status, unspecified Status: Acute Assessment and Plan: Patient was noted to have been less responsive prior to admission. It is possible this may hav been due to his acute infection, however given his overall clinical picture it seems that this is a more chronic issue. He is nonverbal and does not follow commands. He has severe dementia. (5) Pneumonia: Qualifiers: Laterality: right Lung location: unspecified part of lung Pneumonia type: due to unspecified organism Qualified Code(s): J18.9 - Pneumonia, unspecified organism Code(s): J18.9 - Pneumonia, unspecified organism Status: Acute Assessment and Plan: Chest x-ray showed small to moderate-size right midlung zone opacity which may represent an acute infectious process. The patient did not have any respiratory symptoms. COVID test was negative. No further workup was pursued for pneumonia and no additional treatment was required. (6) Dysphagia: Qualifiers: Dysphagia type: unspecified Qualified Code(s): R13.10 - Dysphagia, unspecified Code(s): R13.10 - Dysphagia, unspecified Status: Acute Assessment and Plan: He was noted by nursing staff to cough after each sip of liquids. Bedside swallow study was performed on 02/19 with recommendations for NPO diet until modified barium swallow study could be performed. He had a modified swallow study 02/20 and recommendations continued to remain NPO given risk of aspiration. I discussed these recommendations with his sister Heide (POA). He remained NPO. After her
--- NOTE | 2020-02-22 18:19 | PC.NURSE ---
Pt was supposed to discharge back to [place] with Hospice, with Heide the sister being able to go there to feed him. Care coordination discovered that due to a positive COVID case in their facility they were stating no people would be allowed in to the facility. Both care coordination and [facility] are working with the facility to allow Heide to be able to be visit. Since we were unable to come up with a resolution tonight and the discharge is to facility with hospice, we kept patient here. I called sister and POA Heide Whitney asking to clarify code status. She stated that she would like him to be a DNR. Raquel witnessed, and Dr. Mtz agreed.
[2020-02-22 18:20] LABS: SARS-CoV-2 RNA PCR Negative
[2020-02-22 18:56] LABS: Glucose Point of Care 83 (65-105)
[2020-02-22 22:00] VITALS: BP 122/76; PULSE 62; RESP 16; TEMP 36.6; O2SAT 98
[2020-02-23 02:20] LABS: Glucose Point of Care 80 (65-105)
[2020-02-23] MEDS: SODIUM CHLORIDE 0.9% IV 1,000 ML 125 ML IV CONT (04:03)
[2020-02-23 06:00] VITALS: BP 120/51; PULSE 70; RESP 18; TEMP 36.2; O2SAT 99
[2020-02-23 06:40] LABS: Glucose Point of Care 71 (65-105)
--- NOTE | 2020-02-23 12:36 | PM.DS ---
DS: Admitting Diagnosis Admitting Diagnosis Admitting Diagnosis: Infection and inflammatory reaction due to indwelling urethral catheter, initial encounter DS: Discharge Diagnosis Discharge Diagnosis (1) Failure to thrive: Status: Acute Assessment and Plan: Patient is frail with poor oral intake and is bedbound. Based on his current state, I have concerns for how he can maintain an adequate nutritional status. Goals of care were discussed extensively with his sister. She met with [facility] on 02/21/20 and opted to proceed with Hospice care. He will be evaluated by Hospice upon his return to [place]. His discharge was delayed yesterday due to unclear reasons by the family. CC following and discussed d/c today to [place] which family was agreeable. Further care per [facility] (2) Decubitus ulcer: Code(s): L89.90 - Pressure ulcer of unspecified site, unspecified stage Status: Chronic Assessment and Plan: He has 3 large decubitus ulcers. 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 He was evaluated by wound care and was recoomended to continue Dakin's solution and dressing. He was seen by general surgery but was not a candidate for surgical debridement given his overall condition. He was treated with broad spectrum antibiotics. Preliminary blood cultures revealed NGTD and final cultures will be monitored. Further care per hospice. (3) UTI (urinary tract infection) due to urinary indwelling Cheung catheter: Qualifiers: Encounter type: initial encounter Indwelling urinary catheter type: indwelling urethral catheter Qualified Code(s): T83.511A - Infection and inflammatory reaction due to indwelling urethral catheter, initial encounter; N39.0 - Urinary tract infection, site not specified Code(s): T83.511A - Infection and inflammatory reaction due to indwelling urethral catheter, initial encounter; N39.0 - Urinary tract infection, site not specified Status: Acute Assessment and Plan: Cheung catheter associated UTI. Urine culture showed pseudomonas infection. He was treated with Levaquin based on culture susceptibility. He was given IV fluids. Further management per Hospice. He remained afebrile, without leukocytosis, and had no additional signs or symptoms of infection. (4) Altered mental status: Qualifiers: Altered mental status type: unspecified Qualified Code(s): R41.82 - Altered mental status, unspecified Code(s): R41.82 - Altered mental status, unspecified Status: Acute Assessment and Plan: Patient was noted to have been less responsive prior to admission. It is possible this may hav been due to his acute infection, however given his overall clinical picture it seems that this is a more chronic issue. He is nonverbal and does not follow commands. He has severe dementia. (5) Pneumonia: Qualifiers: Laterality: right Lung location: unspecified part of lung Pneumonia type: due to unspecified organism Qualified Code(s): J18.9 - Pneumonia, unspecified organism Code(s): J18.9 - Pneumonia, unspecified organism Status: Acute Assessment and Plan: Chest x-ray showed small to moderate-size right midlung zone opacity which may represent an acute infectious process. The patient did not have any respiratory symptoms. COVID test was negative. No further workup was pursued for pneumonia and no additional treatment was required. (6) Dysphagia: Qualifiers: Dysphagia type: unspecified Qualified Code(s): R13.10 - Dysphagia, unspecified Code(s): R13.10 - Dysphagia, unspecified Status: Acute Assessment and Plan: He was noted by nursing staff to cough after each sip of liquids. Bedside swallow study was performed on 02/19 with recommendations for NPO diet until modified barium swallow study could be performed. He had a modified swa
[2020-02-23 14:00] VITALS: BP 98/56; PULSE 68; RESP 20; TEMP 36.9; O2SAT 98
[2020-02-23 14:27] LABS: Glucose Point of Care 75 (65-105)
[2020-02-23] MEDS: SOD HYPOCHLORITE 1/4 STRENGTH 473 ML 1 APPLIC TOPICAL (16:01)
--- NOTE | 2020-02-23 18:51 | PM.IMPN ---
Progress Note: A&P Assessment and Plan (1) Failure to thrive: Status: Acute Assessment and Plan: Patient is frail with poor oral intake and is bedbound. Based on his current state, I have concerns for how he can maintain an adequate nutritional status. Goals of care were discussed extensively with his sister. She met with [facility] hospice on 02/21/20 and opted to proceed with Hospice care. He will be evaluated by Hospice upon his return to [place]. (2) Decubitus ulcer: Code(s): L89.90 - Pressure ulcer of unspecified site, unspecified stage Status: Chronic Assessment and Plan: He has 3 large decubitus ulcers. 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 He was evaluated by wound care and was recoomended to continue Dakin's solution and dressing. He was seen by general surgery but was not a candidate for surgical debridement given his overall condition. He was treated with broad spectrum antibiotics. Preliminary blood cultures revealed NGTD and final cultures will be monitored. Further care per hospice. (3) UTI (urinary tract infection) due to urinary indwelling Cheung catheter: Qualifiers: Encounter type: initial encounter Indwelling urinary catheter type: indwelling urethral catheter Qualified Code(s): T83.511A - Infection and inflammatory reaction due to indwelling urethral catheter, initial encounter; N39.0 - Urinary tract infection, site not specified Code(s): T83.511A - Infection and inflammatory reaction due to indwelling urethral catheter, initial encounter; N39.0 - Urinary tract infection, site not specified Status: Acute Assessment and Plan: Cheung catheter associated UTI. Urine culture showed pseudomonas infection. He was treated with Levaquin based on culture susceptibility. He was given IV fluids. He remained afebrile, without leukocytosis, and had no additional signs or symptoms of infection. (4) Altered mental status: Qualifiers: Altered mental status type: unspecified Qualified Code(s): R41.82 - Altered mental status, unspecified Code(s): R41.82 - Altered mental status, unspecified Status: Acute Assessment and Plan: Patient was noted to have been less responsive prior to admission. It is possible this may hav been due to his acute infection, however given his overall clinical picture it seems that this is a more chronic issue. He is nonverbal and does not follow commands. He has severe dementia. (5) Pneumonia: Qualifiers: Laterality: right Lung location: unspecified part of lung Pneumonia type: due to unspecified organism Qualified Code(s): J18.9 - Pneumonia, unspecified organism Code(s): J18.9 - Pneumonia, unspecified organism Status: Acute Assessment and Plan: Chest x-ray showed small to moderate-size right midlung zone opacity which may represent an acute infectious process. The patient did not have any respiratory symptoms. COVID test was negative. No further workup was pursued for pneumonia and no additional treatment was required. (6) Dysphagia: Qualifiers: Dysphagia type: unspecified Qualified Code(s): R13.10 - Dysphagia, unspecified Code(s): R13.10 - Dysphagia, unspecified Status: Acute Assessment and Plan: He was noted by nursing staff to cough after each sip of liquids. Bedside swallow study was performed on 02/19 with recommendations for NPO diet until modified barium swallow study could be performed. He had a modified swallow study 02/20 and recommendations continued to remain NPO given risk of aspiration. I discussed these recommendations with his sister Heide (POA). He remained NPO. After her discussion in which she opted for hospice, she chose to continue with oral feedings. She was made aware of the risk of aspiration. Further management per Hospice. Subjective Date/time seen:
== END 2020-02-23 18:41 | disposition hospice, inpatient (51) | DRG 698 ==
LOC: ANHED 02-19 00:03 → ANH3MEDSUR 02-19 00:17
PROVIDERS: Physician Assistant; Admitting Provider Internal Medicine; Emergency Provider Emergency Medicine; PCP Family Medicine; Visit Provider Physician Assistant
DX: T83.511A Infection and inflammatory reaction due to indwelling urethral catheter, initial encounter (principal); L89.154 Pressure ulcer of sacral region, stage 4; L89.324 Pressure ulcer of left buttock, stage 4; J18.9 Pneumonia, unspecified organism; L89.310 Pressure ulcer of right buttock, unstageable; R62.7 Adult failure to thrive; B96.5 Pseudomonas (aeruginosa) (mallei) (pseudomallei) as the cause of diseases classified elsewhere; N39.0 Urinary tract infection, site not specified; G20 Parkinson's disease; F02.80 Dementia in other diseases classified elsewhere, unspecified severity, without behavioral disturbance, psychotic disturbance, mood disturbance, and anxiety; E78.5 Hyperlipidemia, unspecified; I10 Essential (primary) hypertension; Z20.828 Contact with and (suspected) exposure to other viral communicable diseases; R13.10 Dysphagia, unspecified; Z96.649 Presence of unspecified artificial hip joint; Z74.01 Bed confinement status; Z79.899 Other long term (current) drug therapy; Z88.2 Allergy status to sulfonamides
CPT/HCPCS: 36415; 70450; 71045; 80048; 80053; 80202; 81001; 85025; 85027; 87040; 87077; 87086; 87088; 87186; 87635; 92610; 92611; 93005; 96361; 96365; 96366; 96367; 96372; 99285; A9270; C9803; G0378; J0456; J0696; J1956; J3370; J3480; J7030; U0003